=== PATIENT | female | born 1945 | race Caucasian/White ===

== ENCOUNTER → 2020-06-13 | Outpatient (CLI) | payer MEDICARE, OTHER ==
[~2020-06-13] MED LIST: AMARYL4 MG PO; CLARITIN10 MG PO; COZAAR100 MG PO; DITROPAN 5 MG TA5 MG PO; ECOTRIN81 MG PO; FLONASE 0.05% N16 GM; GLUCOPHAGE1000 MG PO; HYGROTON TAB 2525 MG PO; LIPITOR TAB 2020 MG PO; LOPRESSOR 25 MG25 MG PO; MIRALAX17 GM PO; NEXIUM40 MG PO; PLAVIX 75 MG TA75 MG PO; PROVENTIL HFA 61 INH INH; VICTOZA 1818 MG/3 ML SC
== END ==
LOC: HEART 5 07:28
DX: I48.91 Unspecified atrial fibrillation (principal); R00.2 Palpitations; I11.9 Hypertensive heart disease without heart failure
CPT/HCPCS: 78452; A9502; J2785

== ENCOUNTER 2021-01-30 10:43 | Inpatient (IN) | payer MEDICARE, OTHER ==
[~2021-01-30] VITALS: Ht 147.3 cm; Wt 92.6 kg
[2021-01-30 12:10] LABS: RED BLOOD COUNT 4.46 M/UL (4.00-5.10); WHITE BLOOD COUNT 11.2 K/UL (4.5-11.0)
[2021-01-30 12:31] LABS: BUN/CREATININE RATIO 20 (0-10)
[2021-01-31] MEDS ORDERED: BACLOFEN10 MG PO (03:34)
[2021-01-31] MEDS ORDERED: CALCIUM + D3 E1 EACH PO ×2 (03:35→03:36)
[2021-01-31] MEDS ORDERED: FOLIC ACID1 MG PO (03:37)
[2021-01-31] MEDS ORDERED: FREESTYLE LIBR1 EAC5 MC (03:38)
[2021-01-31] MEDS ORDERED: FREESTYLE LIBR1 EAC3 MC (03:39)
[2021-01-31] MEDS ORDERED: ISOSORBIDE MONO60 MG PO (03:42)
[2021-01-31] MEDS ORDERED: FUROSEMIDE40 MG PO (03:43)
[2021-01-31] MEDS ORDERED: GLUCOPHAGE 500500 MG PO (03:44)
[2021-01-31] MEDS ORDERED: HIPREX1 GM PO (03:46)
[2021-01-31] MEDS ORDERED: MULTI-VITAMIN1 EACH PO (03:47)
[2021-01-31] MEDS ORDERED: MUPIROCIN22 GM EXT (03:48)
[2021-01-31] MEDS ORDERED: NITROGLYCERIN0.4 MG SL (03:49)
[2021-01-31] MEDS ORDERED: POTASSIUM CHLO10 MEQ PO (03:50)
[2021-01-31] MEDS ORDERED: PHENERGAN 25 MG25 M1 PO (03:51)
[2021-01-31] MEDS ORDERED: TOLTERODINE TART4 MG PO (03:52)
[2021-01-31] MEDS ORDERED: VENTOLIN/PROVE0.5 ML INH (03:54)
[2021-01-31] MEDS ORDERED: VITAMIN C500 M4 PO (03:56)
[2021-01-31] MEDS ORDERED: VITAMIN B-12500 MCG PO (03:56)
[2021-01-31] MEDS ORDERED: METOPROLOL TART50 MG PO (03:58)
[2021-01-31 04:43] LABS: HEMOGLOBIN 12.3 gm/dl (12.3-15.3); RED BLOOD COUNT 4.26 M/UL (4.00-5.10); WHITE BLOOD COUNT 9.1 K/UL (4.5-11.0)
[2021-02-01 04:39] LABS: HEMOGLOBIN 11.9 gm/dl (12.3-15.3); RED BLOOD COUNT 4.16 M/UL (4.00-5.10); WHITE BLOOD COUNT 8.7 K/UL (4.5-11.0)
[2021-02-02 06:44] LABS: HEMOGLOBIN 11.6 gm/dl (12.3-15.3); RED BLOOD COUNT 3.95 M/UL (4.00-5.10); WHITE BLOOD COUNT 9.3 K/UL (4.5-11.0)
[2021-02-03 09:19] LABS: RED BLOOD COUNT 4.07 M/UL (4.00-5.10); WHITE BLOOD COUNT 10.6 K/UL (4.5-11.0)
[2021-02-04 07:42] LABS: HEMOGLOBIN 11.9 gm/dl (12.3-15.3); RED BLOOD COUNT 4.21 M/UL (4.00-5.10); WHITE BLOOD COUNT 10.8 K/UL (4.5-11.0)
[2021-02-05 09:27] LABS: RED BLOOD COUNT 4.22 M/UL (4.00-5.10); WHITE BLOOD COUNT 10.4 K/UL (4.5-11.0)
[2021-02-05] MEDS ORDERED: FLONASE 0.05% N16 GM (11:09)
[2021-02-05] MEDS ORDERED: FLORINEF 0.1 M0.1 MG PO (11:09)
[2021-02-05] MEDS ORDERED: AMLODIPINE BESYL5 MG PO (11:09)
[2021-02-05] MEDS ORDERED: MECLIZINE HCL25 MG PO (11:09)
[2021-02-05] MEDS ORDERED: NEOMYC-POLYM-DEX5 ML EARLF (11:09)
[2021-02-05] MEDS ORDERED: LEVOFLOXACIN250 MG PO (11:09)
== END 2021-02-05 15:03 | disposition home health service (06) | DRG 689 ==
LOC: ER1 10:43 → CDU 17:13 → MED SURG 4 17:13
PROVIDERS: Physician Assistant; ADMIT Internal Medicine
DX: N30.00 Acute cystitis without hematuria (principal); J18.9 Pneumonia, unspecified organism; J98.11 Atelectasis; Z96.651 Presence of right artificial knee joint; Z20.822 Contact with and (suspected) exposure to COVID-19; E78.5 Hyperlipidemia, unspecified; K21.9 Gastro-esophageal reflux disease without esophagitis; I10 Essential (primary) hypertension; R55 Syncope and collapse; B96.5 Pseudomonas (aeruginosa) (mallei) (pseudomallei) as the cause of diseases classified elsewhere; I95.1 Orthostatic hypotension; J32.0 Chronic maxillary sinusitis; E11.65 Type 2 diabetes mellitus with hyperglycemia; R60.1 Generalized edema; F41.9 Anxiety disorder, unspecified; Z90.49 Acquired absence of other specified parts of digestive tract; Z98.41 Cataract extraction status, right eye; Z98.42 Cataract extraction status, left eye; Z88.5 Allergy status to narcotic agent; Z88.2 Allergy status to sulfonamides; Z82.49 Family history of ischemic heart disease and other diseases of the circulatory system
CPT/HCPCS: 36415; 70450; 70551; 71045; 71046; 80048; 80053; 81001; 82550; 82553; 82962; 83605; 83874; 84484; 85025; 87040; 87077; 87086; 87186; 93005; 94640; 94664; 94760; 96365; 96366; 96375; 96376; 97116-GP-CQ; 97162; 97530; 97530-GP-CQ; 99285; G0378; J0456; J0696; J7030; U0002